=== PATIENT | female | born 1970 | race Two or more races ===

== ENCOUNTER 2018-12-16 12:48 | Outpatient (CLI) | payer OTHER | END 2018-12-16 12:50 | disposition home or self-care (01) | LOC: SONOGRAMA 12:48 → MAMO-SONO 13:45 | DX: N60.19 Diffuse cystic mastopathy of unspecified breast (principal) ==

== ENCOUNTER 2020-08-12 08:13 | Outpatient (CLI) | payer OTHER | END 2020-08-12 08:29 | disposition home or self-care (01) | LOC: LAB 08:13 | PROVIDERS: ATTEND Obstetrics & Gynecology Maternal & Fetal Medicine | DX: E03.8 Other specified hypothyroidism (principal); D63.8 Anemia in other chronic diseases classified elsewhere; E78.00 Pure hypercholesterolemia, unspecified; R73.09 Other abnormal glucose; M81.0 Age-related osteoporosis without current pathological fracture; K92.1 Melena; Z12.11 Encounter for screening for malignant neoplasm of colon ==

== ENCOUNTER → 2020-08-18 07:33 | Outpatient (CLI) | payer OTHER | END | disposition home or self-care (01) | LOC: LAB 07:33 | PROVIDERS: ATTEND Obstetrics & Gynecology Maternal & Fetal Medicine | DX: N91.1 Secondary amenorrhea (principal); N92.1 Excessive and frequent menstruation with irregular cycle; E03.8 Other specified hypothyroidism; D63.8 Anemia in other chronic diseases classified elsewhere; N30.90 Cystitis, unspecified without hematuria; E78.00 Pure hypercholesterolemia, unspecified; R73.9 Hyperglycemia, unspecified; M81.0 Age-related osteoporosis without current pathological fracture; K92.1 Melena; Z12.11 Encounter for screening for malignant neoplasm of colon ==

== ENCOUNTER 2020-08-18 09:22 | Outpatient (CLI) | payer OTHER | END 2020-08-18 14:36 | disposition home or self-care (01) | LOC: MAMO-SONO 09:22 | PROVIDERS: ATTEND Obstetrics & Gynecology Maternal & Fetal Medicine | DX: N63.0 Unspecified lump in unspecified breast (principal); Z12.31 Encounter for screening mammogram for malignant neoplasm of breast; N64.4 Mastodynia; N60.11 Diffuse cystic mastopathy of right breast ==

== ENCOUNTER 2022-04-04 09:07 | Outpatient (CLI) | payer OTHER | END 2022-04-04 09:15 | disposition home or self-care (01) | LOC: LAB 09:07 | PROVIDERS: ATTEND Obstetrics & Gynecology Maternal & Fetal Medicine | DX: E03.8 Other specified hypothyroidism (principal); D63.8 Anemia in other chronic diseases classified elsewhere; N30.90 Cystitis, unspecified without hematuria; R73.9 Hyperglycemia, unspecified; K92.1 Melena; Z12.11 Encounter for screening for malignant neoplasm of colon; E55.9 Vitamin D deficiency, unspecified ==

== ENCOUNTER 2022-04-04 10:51 | Outpatient (CLI) | payer OTHER | END 2022-04-04 10:52 | disposition home or self-care (01) | LOC: MAMO-SONO 10:51 | PROVIDERS: ATTEND Obstetrics & Gynecology Maternal & Fetal Medicine | DX: N63 Unspecified lump in breast (principal); Z12.31 Encounter for screening mammogram for malignant neoplasm of breast; N64.4 Mastodynia; N60.11 Diffuse cystic mastopathy of right breast ==